=== PATIENT | female | born 1995 | race Caucasian/White ===

== ENCOUNTER 2018-12-21 17:22 | Emergency (ER) | payer OTHER ==
[~2018-12-21] VITALS: Ht 152.4 cm; Wt 60.3 kg
[~2018-12-21 17:22] MED LIST: CIPROFLOXACIN500 MG; COL100 PO; IBU400 M1; LEVAQUIN750 MG PO; NORCO1 TA2 PO; TRAMADOL HYDROC50 MG; ZOFRAN ODT4 MG SL
[2018-12-21 17:32] VITALS: Ht 152.4 cm; Wt 60.3 kg
[2018-12-21 18:50] VITALS: BP 97/66
== END 2018-12-21 18:50 | disposition home or self-care (01) ==
LOC: ED 17:22
DX: N12 Tubulo-interstitial nephritis, not specified as acute or chronic (principal); J06.9 Acute upper respiratory infection, unspecified; Z88.5 Allergy status to narcotic agent; Z88.8 Allergy status to other drugs, medicaments and biological substances
CPT/HCPCS: J0696; J1100